=== PATIENT | female | born 1995 | race Caucasian/White ===

== ENCOUNTER 2021-02-19 08:35 | Emergency (ER) | payer OTHER ==
[~2021-02-19] VITALS: Ht 152.4 cm; Wt 65.9 kg
[~2021-02-19 08:35] MED LIST: MOME13HF2 IH
[2021-02-19] MEDS ORDERED: ALBU8HFA IH (08:42)
[2021-02-19 09:48] VITALS: BP 118/81
== END 2021-02-19 09:54 | disposition home or self-care (01) ==
LOC: EMS 08:40
DX: L30.9 Dermatitis, unspecified (principal)
CPT/HCPCS: 99281; 99283

== ENCOUNTER 2022-02-14 14:00 | Emergency (ER) | payer OTHER ==
[~2022-02-14] VITALS: Ht 152.4 cm; Wt 94.5 kg
[~2022-02-14 14:00] MED LIST changes: +ALBU8HFA IH
[2022-02-14 14:01] VITALS: BP 126/71
[2022-02-14] MEDS ORDERED: DOXYCYCLINE HYCLATE 100 MG TABLET PO ONE (14:30)
[2022-02-14] MEDS ORDERED: TRIAMCINOLONE 0.025% 15 GM CREAM TP ONE (14:30)
[2022-02-14] MEDS ORDERED: IBUPROFEN 600 MG TABLET PO ONE (14:30)
[2022-02-14] MEDS ORDERED: IBUP-2070 PO (14:47)
[2022-02-14] MEDS ORDERED: DOXY-354 PO (14:47)
== END 2022-02-14 15:27 | disposition home or self-care (01) ==
LOC: EMS 14:00
DX: M54.12 Radiculopathy, cervical region (principal); L20.9 Atopic dermatitis, unspecified; L03.221 Cellulitis of neck; Z79.899 Other long term (current) drug therapy
CPT/HCPCS: 99284; Z7502; Z7610